=== PATIENT | female | born 1965 | race Caucasian/White ===

== ENCOUNTER 2017-08-25 18:43 | Emergency (ER) | payer SELFPAY ==
[~2017-08-25] VITALS: Ht 142.2 cm; Wt 77.1 kg
--- OUTSIDE RECORDS SUMMARY | 2017-08-25 18:48 | XMS REPORT ---
Author Author ASMITA ASKEW Organization [employer] Address Unknown Phone Unavailable Care Team Providers Care Metal Alloy Scientist Name Role Phone ASMITA ASKEW CP Unavailable Allergies, Adverse Reactions, Alerts Substance Reaction Event Type N.K.D.A. Info Not Available Non Drug Allergy Problems Problem Type Condition Code Onset Dates Condition Status Assessment Abnormal thyroid blood test R94.6 Active Problem Mixed hyperlipidemia E78.2 Active Problem Heartburn R12 Active Problem Abnormal thyroid blood test R94.6 Active Assessment Heartburn R12 Active Assessment Chronic tension-type headache, not intractable G44.229 Active Problem Chronic tension-type headache, not intractable G44.229 Active Assessment Mixed hyperlipidemia E78.2 Active Medications Medication Code System Code Instructions Start Date End Date Status Dosage Cyclobenzaprine HCl [facility] [address]-69 10 mg Orally Three times a day 1 tablet Ranitidine HCl [facility] [address]-01 300 MG Orally Once a day 1 capsule at bedtime Naproxen [facility] [address]-64 500 MG Orally every 12 hrs 1 tablet as needed Atorvastatin Calcium [facility] [address]-72 80 MG Orally Once a day 1 tablet Procedures Procedure Coding System Code Date ASSAY OF FREE THYROXINE CPT-4 95276 Jan 07, 2016 VENIPUNCT, ROUTINE* CPT-4 79223 Jan 07, 2016 ASSAY THYROID STIM HORMONE CPT-4 62074 Jan 07, 2016 Office Visit, Est Pt., Level 4 CPT-4 48356 Jan 07, 2016 Vital Signs Date/Time: Jan 07, 2016 Cardiac Monitoring Heart Rate 88 bpm Weight 178.2 lbs Height 56 in BMI 39.95 Index Blood Pressure Diastolic 76 mmHg Blood Pressure Systolic 118 mmHg Results No Known Results Summary Purpose [employer] Submission
--- OUTSIDE RECORDS SUMMARY | 2017-08-25 18:48 | XMS REPORT ---
Author Author ASMITA ASKEW [facility] Address [address] [place] [address] Care Team Providers Care Packing Line Worker Name Role Phone ASMITA ASKEW Unavailable PROBLEMS Type Condition ICD9-CM Code [id number] Code Onset Dates Condition Status SNOMED Code Problem Menopausal symptoms N95.1 Active 21282435 Problem Abnormal thyroid blood test R94.6 Active 919433049 Problem Heartburn R12 Active 58292041 Problem Mixed hyperlipidemia E78.2 Active 672451538 Problem Chronic tension-type headache, not intractable G44.229 Active 427312045 ALLERGIES Unknown Allergies SOCIAL HISTORY No smoking Hx information available PLAN OF CARE VITAL SIGNS MEDICATIONS Medication Instructions Dosage Frequency Start Date End Date Duration Status Paroxetine HCl 10 mg Orally Once a day 1 tablet in the morning 24h Apr, Active RESULTS No Results PROCEDURES No Known procedures IMMUNIZATIONS No Known Immunizations
--- OUTSIDE RECORDS SUMMARY | 2017-08-25 18:48 | XMS REPORT ---
Author Author ASMITA ASKEW Organization [facility] Address [address] [place] [address] Care Team Providers Care Lens Fabricating Machine Tender Name Role Phone JAMILAH ASMITA Unavailable PROBLEMS Type Condition ICD9-CM Code [id number] Code Onset Dates Condition Status SNOMED Code Problem Menopausal symptoms N95.1 Active 32636061 Problem Mixed hyperlipidemia E78.2 Active 881232334 Problem Chronic tension-type headache, not intractable G44.229 Active 323898458 Problem Heartburn R12 Active 66636734 ALLERGIES No Information ENCOUNTERS Encounter Location Date Diagnosis [place] [id number] [place] [phone] Jul, Mixed hyperlipidemia E78.2 [place] [address] [address] Jun, Dizziness R42 ; Pain in right knee M25.561 ; Pain in left knee M25.562 ; Mixed hyperlipidemia E78.2 ; Chronic intractable headache, unspecified headache type R51 and BMI 40.0-44.9, adult Z68.41 [place] [id number] [place] [phone] Mar, [place] [id number] [place] [phone] Dec, Mixed hyperlipidemia E78.2 [place] [id number] [place] [address] Nov, Mixed hyperlipidemia E78.2 ; Heartburn R12 ; Chronic tension -type headache, not intractable G44.229 and Menopausal symptoms N95.1 [place] [id number] [place] [phone] Oct, Chronic tension-type headache, not intractable G44.229 [facility] [id number] [place] [address] Jun, Heartburn R12 [place] [id number] [place], [place] [phone] May, Menopausal symptoms N95.1 [facility] [address] [id number] Apr, Dental examination Z01.20 [facility] [address] [address] Apr, Mixed hyperlipidemia E78.2 ; Heartburn R12 ; Chronic tension -type headache, not intractable G44.229 and Menopausal symptoms N95.1 [place] [address] [address] Feb, [place] [address] [address] Dec, Mixed hyperlipidemia E78.2 ; Heartburn R12 ; Chronic tension -type headache, not intractable G44.229 and Abnormal thyroid blood test R94.6 [facility] [address] [id number] Nov, Dental caries K02.9 [place] [id number] [place] [address] Nov, Mixed hyperlipidemia E78.2 ; Heartburn R12 and Chronic tension-type headache, not intractable G44.229 [facility] [id number] [place] [phone] Oct, Dental examination Z01.20 [facility] [address] [address] Oct, IMMUNIZATIONS No Known Immunizations SOCIAL HISTORY Never Assessed REASON FOR VISIT Refill request PLAN OF CARE VITAL SIGNS MEDICATIONS Medication Instructions Dosage Frequency Start Date End Date Duration Status Cyclobenzaprine HCl 10 mg Orally Three times a day-Must have appt for further refills 1 tablet Active RESULTS No Results PROCEDURES No Known procedures INSTRUCTIONS MEDICATIONS ADMINISTERED No Known Medications MEDICAL (GENERAL) HISTORY Type Description Date Medical History hyperlipidemia Medical History headache Medical History acid reflux Surgical History section x 2 Surgical History Tubal ligation Hospitalization History childbirth only
--- OUTSIDE RECORDS SUMMARY | 2017-08-25 18:48 | XMS REPORT ---
Author Author ASMITA ASKEW [facility] Address [address] [place] [address] Care Team Providers Care Family Protection Specialist Name Role Phone ASMITA ASKEW Unavailable PROBLEMS Type Condition ICD9-CM Code [id number] Code Onset Dates Condition Status SNOMED Code Problem Menopausal symptoms N95.1 Active 76540690 Problem Abnormal thyroid blood test R94.6 Active 563282250 Problem Heartburn R12 Active 48536425 Problem Mixed hyperlipidemia E78.2 Active 504061269 Problem Chronic tension-type headache, not intractable G44.229 Active 361429934 ALLERGIES No Information SOCIAL HISTORY Never Assessed PLAN OF CARE VITAL SIGNS MEDICATIONS Medication Instructions Dosage Frequency Start Date End Date Duration Status Ranitidine HCl 300 MG Orally Once a day-must have appt for further refills 1 capsule at bedtime 90 days Active RESULTS No Results PROCEDURES No Known procedures IMMUNIZATIONS No Known Immunizations MEDICAL (GENERAL) HISTORY Type Description Date Medical History hyperlipidemia Medical History headache Medical History acid reflux Surgical History section x 2 Surgical History Tubal ligation Hospitalization History childbirth only
--- OUTSIDE RECORDS SUMMARY | 2017-08-25 18:48 | XMS REPORT ---
Author Author ASMITA ASKEW Organization [employer] Address Unknown Phone Unavailable Care Team Providers Care Field Marketing Specialist Name Role Phone ASMITA ASKEW CP Unavailable Allergies No Known Allergies Problems Problem Type Condition Code Onset Dates Condition Status Problem Mixed hyperlipidemia E78.2 Active Problem Heartburn R12 Active Problem Abnormal thyroid blood test R94.6 Active Problem Chronic tension-type headache, not intractable G44.229 Active Medications Medication Code System Code Instructions Start Date End Date Status Dosage Cyclobenzaprine HCl [facility] [address]-07 10 mg Orally Three times a day- appt needed for futher refills 1 tablet Results No Known Results Summary Purpose [employer] Submission
--- OUTSIDE RECORDS SUMMARY | 2017-08-25 18:48 | XMS REPORT ---
Author Author YOLETTE VILLEGAS [facility] Address Unknown Care Team Providers Care Rope Making Machine Operator Name Role Phone YOLETTE VILLEGAS Unavailable PROBLEMS Type Condition ICD9-CM Code FHJ56-OA Code Onset Dates Condition Status SNOMED Code Problem Menopausal symptoms N95.1 Active 19253605 Problem Abnormal thyroid blood test R94.6 Active 776347667 Problem Heartburn R12 Active 67544883 Problem Mixed hyperlipidemia E78.2 Active 921084604 Problem Chronic tension-type headache, not intractable G44.229 Active 126188206 ALLERGIES Substance Reaction Event Type Date Status N.K.D.A. Unknown Non Drug Allergy Apr, Unknown SOCIAL HISTORY No smoking Hx information available PLAN OF CARE Activity Details Follow Up prn Reason:prophy VITAL SIGNS Blood pressure systolic 132 mmHg 2016-05-20 Blood pressure diastolic 77 mmHg 2016-05-20 MEDICATIONS Medication Instructions Dosage Frequency Start Date End Date Duration Status Paroxetine HCl 10 MG Orally Once a day 1 tablet in the morning 24h Apr, 30 day(s) Active Atorvastatin Calcium 80 MG Orally Once a day 1 tablet 24h Active Ranitidine HCl 300 MG Orally Once a day 1 capsule at bedtime 24h Active Cyclobenzaprine HCl 10 mg Orally Three times a day 1 tablet 8h Active Naproxen 500 MG Orally every 12 hrs 1 tablet as needed 12h Active RESULTS No Results PROCEDURES Procedure Date Ordered Related Diagnosis Body Site LTD ORAL EVALUATION - PROBLEM FOCUS May 20, 2016 INTRAORL-PERIAPICAL 1 FILM 66899 May 20, 2016 IMMUNIZATIONS No Known Immunizations
--- OUTSIDE RECORDS SUMMARY | 2017-08-25 18:49 | XMS REPORT ---
Author Author ASMITA ASKEW [facility] [employer] Address Unknown Phone Unavailable Care Team Providers Care Stabilizing Machine Operator Name Role Phone ASMITA ASKEW CP Unavailable Allergies, Adverse Reactions, Alerts Substance Reaction Event Type N.K.D.A. Info Not Available Non Drug Allergy Problems Problem Type Condition Code Onset Dates Condition Status Problem Heartburn R12 Active Problem Chronic tension-type headache, not intractable G44.229 Active Problem Mixed hyperlipidemia E78.2 Active Assessment Chronic tension-type headache, not intractable G44.229 Active Assessment Mixed hyperlipidemia E78.2 Active Assessment Heartburn R12 Active Medications Medication Code System Code Instructions Start Date End Date Status Dosage ibuprofen [facility] [address]-05 Oral 1 tab Cyclobenzaprine HCl [facility] [address]-92 10 mg Orally Three times a day 1 tablet Ranitidine HCl [facility] [address]-25 300 MG Orally Once a day 1 capsule at bedtime Atorvastatin Calcium [facility] [address]-47 80 MG Orally Once a day 1 tablet Naproxen [facility] [address]-12 500 MG Orally every 12 hrs 1 tablet as needed Procedures Procedure Coding System Code Date COMPREHEN METABOLIC PANEL CPT-4 58725 November 26, 2015 COMPLETE CBC W/AUTO DIFF WBC CPT-4 67742 November 26, 2015 LIPID PANEL CPT-4 58357 November 26, 2015 VENIPUNCT, ROUTINE* CPT-4 22474 November 26, 2015 ASSAY THYROID STIM HORMONE CPT-4 68254 November 26, 2015 Office Visit, New Pt., Level 3 CPT-4 80433 November 26, 2015 Vital Signs Date/Time: November 26, 2015 Cardiac Monitoring Heart Rate 90 bpm Weight 182.2 lbs Height 56 in Blood Pressure Diastolic 92 mmHg Blood Pressure Systolic 138 mmHg Results No Known Results Summary Purpose [employer]Works Submission
--- OUTSIDE RECORDS SUMMARY | 2017-08-25 18:49 | XMS REPORT | Continuity of Care Document ---
Author Author [facility] Organization [facility] Address Unknown Phone Unavailable Allergies There is no data. Medications There is no data. Problems Date Dx Coded Attending Type Code Diagnosis Diagnosed By 10/30/2015 AMRIT KONG DO Ot F17.210 NICOTINE DEPENDENCE, CIGARETTES, UNCOMPL 10/30/2015 DILAN DOAMRIT Ot R05 COUGH 10/30/2015 AMRIT KONG DO Ot R06.02 SHORTNESS OF BREATH 02/18/2016 AMRIT KONG DO Ot F17.210 NICOTINE DEPENDENCE, CIGARETTES, UNCOMPL 02/18/2016 AMRIT KONG DO Ot R05 COUGH 02/18/2016 GELTATIANADER DO, AMRIT Duran Ot R06.02 SHORTNESS OF BREATH 02/18/2016 AMRIT KONG DO Ot F17.210 NICOTINE DEPENDENCE, CIGARETTES, UNCOMPL 02/18/2016 DILAN DO, AMRIT Duran Ot R05 COUGH 02/18/2016 GELTATIANADER , AMRIT Duran Ot R06.02 SHORTNESS OF BREATH 02/18/2016 DILLONDER , AMRIT Duran Ot F17.210 NICOTINE DEPENDENCE, CIGARETTES, UNCOMPL 02/18/2016 GELTATIANADER DO, AMRIT Duran Ot R05 COUGH 02/18/2016 GELTATIANADER , AMRIT Duran Ot R06.02 SHORTNESS OF BREATH Procedures There is no data. Results There is no data. Encounters ACCT No. Visit Date/Time Discharge Status Pt. Type Provider Facility Loc./Unit Complaint [id number] 10/26/2015 13:42:00 10/26/2015 23:59:59 CLS Outpatient BRAYDON WALL DO [facility] QUICK [id number] 07/23/2015 08:15:00 07/23/2015 23:59:59 CLS Outpatient AMRIT KONG DO [facility] RAD COUGH,SOB
[2017-08-25] MEDS ORDERED: TRIM/SULFAMETH 160/800 (SEPTRA DS) TAB PO ONE (19:00)
[2017-08-25] MEDS ORDERED: SULF1TAB35 PO (19:00)
--- NOTE | 2017-08-25 19:00 | ED Integumentary General ---
General Stated Complaint: LEG WOUND/PAIN Source: patient Exam Limitations: no limitations History of Present Illness Date Seen by Provider: Aug 25, 2017 Time Seen by Provider: 18:56 Initial Comments Neurological clear that to ER with a one-week history of right groin draining wound with pain. 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 She denies fevers or chills. She has had a history of these draining wounds over her lifetime to both inguinal regions and proximal thighs as well as to both armpits. She's been on antibiotics which usually temporarily does help symptoms. Timing/Duration: week, getting worse Severity: moderate Location: extremities Allergies and Home Medications Allergies Coded Allergies: No Known Drug Allergies (Unverified , 08/25/17) Patient Home Medication List Home Medication List Reviewed: Yes Constitutional: see HPI EENTM: see HPI Respiratory: no symptoms reported Cardiovascular: no symptoms reported Genitourinary: no symptoms reported Musculoskeletal: no symptoms reported Skin: see HPI Psychiatric/Neurological: No Symptoms Reported Past Himpcdh-Vbajgq-Lksdga Hx Patient Social History Recent Foreign Travel: No Contact w/Someone Who Travel: No Physical Exam Vital Signs Capillary Refill : General Appearance: WD/WN, no apparent distress HEENT: PERRL/EOMI, normal ENT inspection Neck: non-tender, full range of motion Respiratory: no respiratory distress, no accessory muscle use Gastrointestinal: normal bowel sounds, non tender Neurologic/Psychiatric: normal mood/affect, oriented x 3 Skin: normal color, warm/dry, other (there are a multitude of healed abscesses to the inguinal region bilaterally. Currently there is one on the right that is about 0.57 m in width, open, appears to be fistulous or tunneling. There is7-10 cm of slight erythema. ) Departure Impression Primary Impression: Hidradenitis suppurativa Disposition: 01 HOME, SELF-CARE Condition: Stable Departure-Patient Inst. Decision time for Depature: 18:59 Referrals: [facility]/ (PCP) Primary Care Physician Patient Instructions: Hidradenitis Suppurativa Add. Discharge Instructions: 1. Warm compresses to this area 2. Antibiotics twice daily as directed. Return to ER for any fevers or worsening redness. Scripts Sulfamethoxazole/Trimethoprim (Bactrim Ds Tablet) 1 Each Tablet 1 EACH PO BID, #14 TAB Prov: DEVYN HUGGINS APRN 08/25/17 Work/School Note: Work Release Form Date Seen in the Emergency Department: Aug 25, 2017 Return to Work: Aug 28, 2017 DEVYN HUGGINS APRN Aug 25, 2017 19:00
[2017-08-25 19:42] VITALS: BP 128/72
== END 2017-08-25 19:42 | disposition home or self-care (01) ==
LOC: EDUNIT# 18:43 → ER 18:45
DX: L73.2 Hidradenitis suppurativa (principal)
CPT/HCPCS: 87070; 87077; 87186; 87205; 99283

== ENCOUNTER → 2017-11-28 | Outpatient (CLI) | payer OTHER ==
[~2017-11-28] MED LIST: SULF1TAB35 PO
== END ==
LOC: WOUNDCARE 13:46
PROVIDERS: ATTEND Surgery
DX: L22 Diaper dermatitis (principal); L73.2 Hidradenitis suppurativa; E66.01 Morbid (severe) obesity due to excess calories; Z68.34 Body mass index [BMI] 34.0-34.9, adult; T65.222A Toxic effect of tobacco cigarettes, intentional self-harm, initial encounter
CPT/HCPCS: 99213

== ENCOUNTER → 2017-12-08 | Outpatient (CLI) | payer OTHER | LOC: WOUNDCARE 08:55 | PROVIDERS: ATTEND Surgery | DX: L22 Diaper dermatitis (principal); L73.2 Hidradenitis suppurativa; E66.01 Morbid (severe) obesity due to excess calories; Z68.34 Body mass index [BMI] 34.0-34.9, adult; T65.222A Toxic effect of tobacco cigarettes, intentional self-harm, initial encounter | CPT/HCPCS: 99212 ==

== ENCOUNTER 2021-01-10 20:36 | Emergency (ER) | payer SELFPAY ==
[~2021-01-10] VITALS: Ht 146 cm; Wt 77.1 kg
[~2021-01-10 20:36] MED LIST changes: -SULF1TAB35 PO; +SULF1TAB38 PO
[2021-01-10 21:25] VITALS: BP 102/81
[2021-01-10] MEDS ORDERED: METH4TAB10 PO (22:50)
--- NOTE | 2021-01-10 22:50 | ED Lower Extremity ---
General Chief Complaint: Lower Extremity Stated Complaint: R LEG PAIN Nursing Triage Note: right leg pain started 3-4 days agostarts in right hip and radiates to right knee Source: patient Exam Limitations: no limitations History of Present Illness Date Seen by Provider: Jan 10, 2021 Time Seen by Provider: 22:46 Initial Comments To ER with c/o right anterior lateral thigh pain. Pain is sharp and stabbing in nature. It is intermittent and not present currently no fevers no chills. Is been going on for "a long time". No known injury. No back pain no numbness or tingling of the genitals. No fevers or chills. Onset: just prior to arrival Severity: moderate Pain/Injury Location: right thigh Method of Injury: unknown Modifying Factors: Worse With Movement Allergies and Home Medications Allergies Coded Allergies: No Known Drug Allergies (Unverified , 08/25/17) Home Medications Sulfamethoxazole/Trimethoprim 1 Each Tablet, 1 EACH PO BID Prescribed by: DEVYN HUGGINS on 08/25/17 1900 Patient Home Medication List Home Medication List Reviewed: Yes Review of Systems Constitutional: see HPI EENTM: see HPI Respiratory: no symptoms reported Cardiovascular: no symptoms reported Genitourinary: no symptoms reported Musculoskeletal: see HPI Skin: no symptoms reported Psychiatric/Neurological: No Symptoms Reported Past Rfxmzxv-Tpijyx-Artcmj Hx Seasonal Allergies Seasonal Allergies: No Past Medical History Surgeries: No Respiratory: No Cardiac: No Neurological: No Genitourinary: No Gastrointestinal: No Musculoskeletal: No Endocrine: No HEENT: No Cancer: No Psychosocial: No Integumentary: No Blood Disorders: No Physical Exam Vital Signs Vital Signs - First Documented 01/10/21 21:25 Temp 36.2 Pulse 94 Resp 18 B/P (MAP) 102/81 (88) Pulse Ox 97 O2 Delivery Room Air Capillary Refill : Less Than 3 Seconds Height, Weight, BMI Height: 4'8.00" Weight: 170lbs. oz. 77.585968so; 36.00 BMI Method:Stated General Appearance: WD/WN, no apparent distress Neck: non-tender, full range of motion Respiratory: no respiratory distress, no accessory muscle use Hips: bilateral hip non-tender, bilateral hip normal inspection, bilateral hip normal range of motion Legs: bilateral leg non-tender, bilateral leg normal inspection, bilateral leg normal range of motion Knees: bilateral knee non-tender, bilateral knee normal inspection, bilateral knee normal range of motion Ankles: bilateral ankle non-tender, bilateral ankle normal inspection, bilateral ankle normal range of motion Feet: bilateral foot non-tender, bilateral foot normal inspection, bilateral foot normal range of motion Neurologic/Psychiatric: alert, normal mood/affect, oriented x 3 Skin: normal color, warm/dry Strong dorsalis pedis pulse. The leg is warm there is no rash or abrasion. No evidence of injury. Full range of motion of the knee and full range of motion at the knee and hip. Progress/Results/Core Measures Results/Orders Vital Signs/I&O 01/10/21 21:25 Temp 36.2 Pulse 94 Resp 18 B/P (MAP) 102/81 (88) Pulse Ox 97 O2 Delivery Room Air Blood Pressure Mean: 88 Departure Impression Primary Impression: Osteoarthritis of knee Disposition: 01 HOME, SELF-CARE Condition: Stable Departure-Patient Inst. Decision time for Depature: 22:49 [facility] ([facility]Family[facility] Primary Care Physician Patient Instructions: Osteoarthritis Add. Discharge Instructions: All discharge instructions reviewed with patient and/or family. Voiced understanding. Scripts Methylprednisolone (Methylprednisolone Dose Pack) 4 Mg Tab.ds.pk 4 MG PO UD for 6 Days, #21 PKG PER DOSE PACK INSTRUCTIONS Prov: DEVYN HUGGINS APRN 01/10/21 DEVYN HUGGINS APRN Jan 10, 2021 22:50
== END 2021-01-10 22:55 | disposition home or self-care (01) ==
LOC: EDUNIT# 20:36 → ER 20:37
DX: M17.11 Unilateral primary osteoarthritis, right knee (principal)
CPT/HCPCS: 99283

== ENCOUNTER → 2021-01-29 | Outpatient (CLI) | payer SELFPAY ==
[~2021-01-29] MED LIST changes: +METH4TAB10 PO
--- NOTE | 2021-01-29 14:51 | Diagnostic Imaging Report ---
PROCEDURE: MRI lumbar spine. TECHNIQUE: Multiplanar, multisequence MRI of the lumbar spine was performed without contrast. DATE: January 29, 2021. COMPARISON: None. INDICATION: 55-year-old female, low back and right hip pain. FINDINGS: There is normal lumbosacral spine alignment. There is no evidence of a diffuse marrow infiltrating or replacing process. There is a benign L2 vertebral body hemangioma. There is no focal concerning bone lesion. There is no compression deformity or fracture. The visualized cord and conus medullaris is unremarkable and terminates at the L1 level. The disc heights are well preserved. There is no disc dessication. T12-L1: There is mild diffuse disc bulge. There is no identified foraminal or spinal stenosis. L1-L2: There is no disc bulge. The facet joints and ligamentum flavum are unremarkable. There is no foraminal narrowing. There is no spinal canal stenosis. L2-L3: There is mild diffuse disc bulge. The facet joints and ligamentum flavum are unremarkable. There is no foraminal narrowing. There is no spinal canal stenosis. L3-L4: There is no disc bulge. The facet joints and ligamentum flavum are unremarkable. There is no foraminal narrowing. There is no spinal canal stenosis. L4-L5: There is no disc bulge. The facet joints and ligamentum flavum are unremarkable. There is no foraminal narrowing. There is no spinal canal stenosis. L5-S1: There is no disc bulge. The facet joints and ligamentum flavum are unremarkable. There is no foraminal narrowing. There is no spinal canal stenosis. IMPRESSION: 1. Mild diffuse disc bulges at T12-L1 and L2-L3 without foraminal or spinal stenosis. 2. Benign L2 vertebral body hemangioma. Dictated by: Dictated on workstation # [id number]
== END ==
LOC: RAD 11:00
PROVIDERS: ATTEND Physician Assistant
DX: M51.25 Other intervertebral disc displacement, thoracolumbar region (principal); D18.09 Hemangioma of other sites
CPT/HCPCS: 72148